=== PATIENT | female | born 1945 | race Caucasian/White ===

== ENCOUNTER → 2020-11-27 14:53 | Outpatient (CLI) | payer OTHER, SELFPAY ==
--- NOTE | ~2020-11-27 | XR_ITS ---
EXAMINATION: XR hip BI 2V w AP pelvis EXAM DATE: 11/27/2020 15:07 INDICATION: M25.559 - Pain in unspecified hip, willy hip buttock pain. No known injury. TECHNIQUE: Each hip imaged independently (separate right and also left hip) 'frog leg' and frontal p rojections for interpretation. Frontal projection pelvis. There is no prior study for comparison. FINDINGS: No radiographic evidence of hip avascular necrosis. There is mild to moderate symmetric bi lateral hip primary osteoarthritis. There are no acute fractures or dislocations identified. There i s no subcutaneous gas. The soft tissue is unremarkable. There are no radiopaque foreign bodies. IMPRESSION: Mild to moderate symmetric bilateral hip osteoarthritis. Reviewed, dictated and finalized at location B. SERVICE TEAM MEMBER
== END ==
PROVIDERS: Visit Provider Internal Medicine
DX: M25.559 Pain in unspecified hip (principal); M16.0 Bilateral primary osteoarthritis of hip
CPT/HCPCS: 73521

== ENCOUNTER 2021-06-02 12:03 | Outpatient (CLI) | payer OTHER, SELFPAY ==
--- NOTE | ~2021-06-02 | XR_ITS ---
XR chest 2V DATE: 06/02/2021 12:42 INDICATION: Acute upper respiratory infection TECHNIQUE: 2 views COMPARISON: None FINDINGS: Approximately 12 mm mass density overlies the right apical area; CT thorax is recommended t o exclude a lung mass. There is focal infiltrate or atelectasis or mass density in the lateral right mid lung field as well. Lungs are mildly hyperinflated but otherwise clear of infiltrate or consolidation. Normal heart size. Coronary artery calcifications. Aortic calcification. No hilar or mediastinal enla rgement. No pleural effusion or pulmonary vascular congestion or pneumothorax. Diffuse osteopenia. IMPRESSION: Suspected approximately 12 mm right upper lobe lung mass suspicious for malignancy. CT th orax is recommended. Dr. Ho telephoned the findings to 12 mm suspected right lung mass and possible malignancy to Dr. Eloisa larios's after hours exchange at [phone] on 06/02/[address] Knowles returned the phone call at 1253 hours and confirmed receipt of the information concerning the 12 mm suspected right upper lobe lung mass suspicious for malignancy Reviewed, dictated and finalized at location A. IMPRESSION: Suspected approximately 12 mm right upper lobe lung mass suspicious for malignancy. CT thorax is recommended. Dr. Ho telephoned the findings to 12 mm suspected right lung mass and possibl e malignancy to Dr. Knowles'gregory after hours exchange at [phone] on 06/02/[address] Knowles returned the phone call at 1253 hours and confirmed receipt of the i nformation concerning the 12 mm suspected right upper lobe lung mass suspicious for malignancy
--- NOTE | ~2021-06-02 | XR_ITS ---
XR lumbar spine 2-3V DATE: 06/02/2021 12:42 INDICATION: Back pain TECHNIQUE: AP, lateral, coned lateral lumbosacral views COMPARISON: None FINDINGS: There is diffuse osteopenia. There is mild levoscoliosis of the lumbar spine. There is concavity of some of the vertebral endplates consistent with mild compression fracture defor mities There is prominent degenerative disc disease at L5-S1 and mild to moderate degenerative disc disease at the remaining lumbar levels. There is minimal retrolisthesis at L3-4. The lumbar pedicles are intact. The sacroiliac joints are normal. There is extensive calcification of the abdominal aorta without evidence of aneurysm. IMPRESSION: Diffuse osteopenia Mild dextroscoliosis of the lumbar spine Multilevel degenerative disc disease, most pronounced at L5-S1 Concavity is uncovertebral endplate, consistent with compression fractures of undetermined age Reviewed, dictated and finalized at location A. IMPRESSION: Diffuse osteopenia Mild dextroscoliosis of the lumbar spine Multilevel degenerative disc disease, most pronounced at L5-S1 Concavity is uncovertebral endplate, consistent with compression fractures of u ndetermined age
--- NOTE | 2021-06-02 12:55 | ECG_ITS ---
Measurements Intervals [place] Rate: 78 P: 64 NH: 164 QRS: 34 QRSD: 71 T: 36 QT: 375 QTc: 429 Interpretive Statements SINUS RHYTHM BASELINE ARTIFACT- I, III NORMAL ECG Electronically Signed On 06-02-2021 13:32:57 CDT by Tomás Morgan D.O.
== END 2021-06-02 12:04 | disposition home or self-care (01) ==
PROVIDERS: PCP Internal Medicine; Visit Provider Internal Medicine
DX: J06.9 Acute upper respiratory infection, unspecified (principal); M54.9 Dorsalgia, unspecified; I10 Essential (primary) hypertension; M85.89 Other specified disorders of bone density and structure, multiple sites; M41.86 Other forms of scoliosis, lumbar region; M51.37 Other intervertebral disc degeneration, lumbosacral region; R91.8 Other nonspecific abnormal finding of lung field
CPT/HCPCS: 71046; 72100; 93005

== ENCOUNTER 2021-06-18 11:04 | Outpatient (CLI) | payer OTHER, SELFPAY ==
--- NOTE | ~2021-06-18 | CT_ITS ---
EXAMINATION: CT diagnostic chest wo con EXAM DATE: 06/18/2021 11:28 INDICATION: R91.1 - Solitary pulmonary nodule TECHNIQUE: Spiral CT of the chest without contrast. Axial, coronal and sagittal images of the chest were reviewed. Coronal maximum intensity pixel images of chest reviewed. The dose-length product ( DLP) for this examination was 53.85 mGy-cm. The exposure was tailored according to patient size (aut o mA exposure control), and iterative reconstruction (ASIR) was used as additional dose reduction ron hnique. Correlation is made to chest x-ray 06/02/2021. FINDINGS: Spiculated right upper lobe mass measuring 1.8 x 1.6 cm, consistent with primary lung canc er. There is mild emphysema. There is right middle lobe bronchiectasis and some endobronchial debris, along with chronic scattered regions of tree-in-bud opacity most consistent with chronic infectious or postinfectious process. Tuberculosis not excludable. There are no pleural or pericardial effusions. Tracheobronchial tree is patent. There is no media stinal, hilar or axillary lymphadenopathy. There is no pneumothorax. Heart normal in size. Ther e is moderate coronary arterial calcification, arterial sclerosis. There is moderate sliding gastroes ophageal hiatal hernia. There is thoracic spondylosis without osteoblastic or osteolytic lesions orquidea ntified. IMPRESSION: 1. Right upper lobe spiculated nodule probably primary lung cancer; CT-guided percutaneous biopsy. 2. Scattered tree-in-bud opacities consistent with endobronchial spread of chronic infectious proces s. 3. Mild emphysema. 4. Moderate hiatal hernia. Reviewed, dictated and finalized at location A. IMPRESSION: 1. Right upper lobe spiculated nodule probably primary lung cancer; CT-guided percutaneous biopsy. 2. Scattered tree-in-bud opacities consistent with endobronchial spread of chr onic infectious process. 3. Mild emphysema. 4. Moderate hiatal hernia.
== END 2021-06-18 11:05 | disposition home or self-care (01) ==
LOC: ANHIMG 11:06
PROVIDERS: PCP Internal Medicine; Visit Provider Internal Medicine
DX: R91.1 Solitary pulmonary nodule (principal); J43.9 Emphysema, unspecified; K44.9 Diaphragmatic hernia without obstruction or gangrene
CPT/HCPCS: 71250

== ENCOUNTER 2022-06-28 02:52 | Emergency (ER) | payer OTHER, SELFPAY ==
--- NOTE | ~2022-06-28 | XR_ITS ---
EXAMINATION: XR wrist LT min 3V DATE: 06/28/2022 03:29 INDICATION: Left wrist injury and pain and swelling. TECHNIQUE: 4 views of left wrist were obtained. COMPARISON: None. FINDINGS: There is a transverse fracture of distal radial metaphysis. The distal fracture fragment de monstrates impaction and dorsal angulation. There is 12 degrees dorsal tilt of the distal articular s urface. There is an avulsion fracture of the ulnar styloid. There is mild osteoarthritis of triscaphe joint and severe osteoarthritis of first carpometacarpal joint. IMPRESSION: 1. Transverse fracture of distal radius. 2. Avulsion fracture of the ulnar styloid. Reviewed, dictated and finalized at location A.
[2022-06-28 02:59] VITALS: BP 191/79; PULSE 74; RESP 16; O2SAT 98
--- NOTE | 2022-06-28 03:09 | PC.NURSE ---
Arina, granddaughter, request updates [phone]
[2022-06-28 03:34] VITALS: O2SAT 98
[2022-06-28 03:35] VITALS: BP 168/84; O2SAT 97
[2022-06-28 03:45] VITALS: O2SAT 97
--- NOTE | 2022-06-28 03:54 | ED.UPPEXIN ---
HPI - Extremity Injury (Upper) General Chief Complaint: Extremity Injury, Upper Stated Complaint: fall and left arm pain and chronic diarrhea Time Seen by Provider: 06/28/22 02:59 History of Present Illness HPI narrative: Patient is a 77-year-old female who presents ER with left wrist pain. Patient had a fall from standing while going into the living room to check on her great-grandchildren who are sleeping there. Did not strike her head or lose consciousness. After injuring herself she did get lightheaded after losing her bowel and bladder. She is not feeling dizzy at this time. She has pain at her left wrist. No numbness or tingling in the fingers. She also has some achiness of her back. Related Data Home Medications Medication Instructions Recorded Confirmed [id number] tablet 1 tablet PO DAILY 07/06/21 02/17/22 potassium chloride 20 mEq 20 meq PO DAILY 09/24/21 02/17/22 tablet,extended release(part/cryst) (Klor-Con M) cholecalciferol (vitamin D3) 25 25 mcg PO DAILY 10/12/21 02/17/22 mcg (1,000 unit) capsule Allergies Allergy/AdvReac Type Severity Reaction Status Date / Time cephalexin [From Keflex] Allergy Severe Nausea and Verified 02/17/22 11:22 Vomiting codeine Allergy Severe Fainting Verified 02/17/22 11:22 azithromycin Allergy Unknown Nausea and Verified 02/17/22 11:22 Vomiting Review of Systems Review of Systems: All systems reviewed & are unremarkable except as noted in HPI and below Gastrointestinal: Gastrointestinal: Reports diarrhea (Chronic issue), Denies nausea and Denies vomiting Musculoskeletal: Musculoskeletal: Reports back pain, Reports arthralgias, Reports joint swelling and Denies muscle cramps Integumentary/Breasts: Skin/Breast: Denies erythema and Denies rash Neurologic: Denies syncope, Denies headache(s), Denies focal weakness and Denies numbness PMFSH Past Medical History Medical History Abnormal fasting glucose Atherosclerosis of aorta Atherosclerotic heart disease of [place] coronary artery without angina pectoris Cervical cancer Essential (primary) hypertension Gastro-esophageal reflux disease without esophagitis Hyperlipidemia, unspecified Macular degeneration of both eyes Postmenopausal Vitamin D deficiency, unspecified Surgical History Surgical History H/O lumpectomy Family History Family History Mother Lung cancer Heart disease Father Cerebrovascular accident Social History Social History (Updated 10/12/21 @ 13:05 by Cynthia Mcallister CNA) Smoking packs per day: 3 Smoking cigarettes per day: 60.0 Years smoked: 50 Smoking pack-years: 150.00 Tobacco type: cigarettes Second hand tobacco smoke exposure: No Smoking end date: 10/23/06 Alcohol intake: never Substance use: never Exam Narrative: GENERAL: Well-appearing, well-nourished, and in no acute distress. HEAD: Normocephalic, atraumatic. Neck: No midline tenderness of the C-spine. Mild tenderness over left trapezius musculature. CHEST: Clear to auscultation. No respiratory distress. HEART: Regular rate and rhythm. Normal peripheral pulses. EXTREMITIES: Left upper extremity with swelling of the right wrist with tenderness along the joint line. Limited range of motion due to pain. Normal range of motion of the fingers and elbow and shoulder. SKIN: Warm, dry, no rash. NEURO: No focal deficits. Alert and oriented x3. PSYCH: Normal mood and affect. Course Course Emergency Course: Patient and family informed of results. Volar splint placed by nursing staff. Small dose of tramadol at request of patient. Vital Signs Vital signs: Vital Signs Pulse Rate 74 06/28/22 02:59 Respiratory Rate 16 06/28/22 02:59 Blood Pressure 191/79 H 06/28/22 02:59 Pulse Oximetry 98
[2022-06-28 04:00] VITALS: O2SAT 97
[2022-06-28 04:01] VITALS: BP 181/77; O2SAT 97
== END 2022-06-28 04:19 | disposition home or self-care (01) ==
PROVIDERS: Emergency Provider Emergency Medicine; PCP Internal Medicine
DX: S59.292A Other physeal fracture of lower end of radius, left arm, initial encounter for closed fracture (principal); S52.612A Displaced fracture of left ulna styloid process, initial encounter for closed fracture; I70.0 Atherosclerosis of aorta; I25.10 Atherosclerotic heart disease of native coronary artery without angina pectoris; I10 Essential (primary) hypertension; E78.5 Hyperlipidemia, unspecified; K21.9 Gastro-esophageal reflux disease without esophagitis; H35.30 Unspecified macular degeneration; E55.9 Vitamin D deficiency, unspecified; Z85.41 Personal history of malignant neoplasm of cervix uteri; Z87.891 Personal history of nicotine dependence; W18.30XA Fall on same level, unspecified, initial encounter
CPT/HCPCS: 29125; 73110; 99284